=== PATIENT | male | born 1990 | race Two or more races ===

== ENCOUNTER 2023-08-01 14:47 | Outpatient (OUT) | payer OTHER, SELFPAY ==
[2023-08-01 15:35] LABS: Basophils Absolute Auto 0.1 10^3/uL (0.0-0.1); Basophils Percent Auto 0.8 % (0.2-2.0); Eosinophils Absolute Auto 0.1 10^3/uL (0.0-0.7); Eosinophils Percent Auto 1.1 % (0.9-7.0); Hematocrit 37.8 % (42.0-54.0); Hemoglobin 12.6 g/dL (14.0-18.0); Immature Granulocytes Abs Auto 0.08 10^3/uL (0.00-0.03); Immature Granulocytes Pct Auto 0.7 % (0.0-0.5); Lymphocytes Absolute Auto 2.9 10^3/uL (1.2-3.8); Lymphocytes Percent Auto 27.4 % (20.5-60.0); Mean Corpuscular HGB Conc 33.3 g/dL (29.9-35.2); Mean Corpuscular Hemoglobin 30.1 pg (25.9-34.0); Mean Corpuscular Volume 90.4 fL (80.0-94.0); Mean Platelet Volume 10.4 fL (9.5-13.5); Monocytes Absolute Auto 1.4 10^3/uL (0.3-0.8); Monocytes Percent Auto 13.3 % (1.7-12.0); Neutrophils Percent Auto 56.7 % (43.0-75.0); Platelet Count 202 10^3/uL (150-450); Red Blood Count 4.18 10^6/uL (4.70-6.10); Red Cell Distribution Width 13.6 % (11.0-15.0); White Blood Count 10.7 10^3/uL (4.0-11.0)
[2023-08-01 15:36] LABS: Alanine Aminotransferase 37 U/L (16-63); Albumin Level 4.1 g/dL (3.4-5.0); Alkaline Phosphatase 70 U/L (46-116); Anion Gap 14.5; Aspartate Amino Transferase 25 U/L (15-37); BUN Creatinine Ratio 8.9; Bilirubin Total 0.3 mg/dL (0.2-1.0); Calcium 8.8 mg/dL (8.5-10.1); Carbon Dioxide 27.8 mmol/L (21.0-32.0); Chloride 97 mmol/L (98-107); Estimated GFR (African America >60 (>=60); Estimated GFR (Non-African Ame >60 (>=60); Globulin 4.1 g/dL; Glucose 92 mg/dL (74-106); Potassium 3.3 mmol/L (3.5-5.1); Sodium 136 mmol/L (136-145); Total Protein 8.2 g/dL (6.4-8.2)
== END 2023-08-01 14:48 | disposition home or self-care (01) ==
LOC: LAB 14:50
PROVIDERS: PCP Internal Medicine; Visit Provider Internal Medicine
DX: I10 Essential (primary) hypertension (principal)
CPT/HCPCS: 36415; 80053; 85025

== ENCOUNTER 2023-08-26 07:46 | Outpatient (RCR) | payer OTHER, SELFPAY ==
[2023-08-26 14:00] LABS: Basophils Absolute Auto 0.1 10^3/uL (0.0-0.1); Basophils Percent Auto 0.8 % (0.2-2.0); Eosinophils Absolute Auto 0.1 10^3/uL (0.0-0.7); Eosinophils Percent Auto 1.9 % (0.9-7.0); Hematocrit 39.4 % (42.0-54.0); Hemoglobin 12.9 g/dL (14.0-18.0); Immature Granulocytes Abs Auto 0.06 10^3/uL (0.00-0.03); Immature Granulocytes Pct Auto 0.9 % (0.0-0.5); Lymphocytes Absolute Auto 1.8 10^3/uL (1.2-3.8); Lymphocytes Percent Auto 28.2 % (20.5-60.0); Mean Corpuscular HGB Conc 32.7 g/dL (29.9-35.2); Mean Corpuscular Hemoglobin 29.9 pg (25.9-34.0); Mean Corpuscular Volume 91.2 fL (80.0-94.0); Monocytes Absolute Auto 0.7 10^3/uL (0.3-0.8); Monocytes Percent Auto 11.5 % (1.7-12.0); Neutrophils Absolute Auto 3.6 10^3/uL (1.4-6.5); Neutrophils Percent Auto 56.7 % (43.0-75.0); Platelet Count 177 10^3/uL (150-450); Red Blood Count 4.32 10^6/uL (4.70-6.10); Red Cell Distribution Width 13.2 % (11.0-15.0); Reticulocyte Pct Auto 1.72 % (0.60-3.10); White Blood Count 6.4 10^3/uL (4.0-11.0)
[2023-08-26 14:18] LABS: Percent Iron Saturation 29.5 %
[2023-08-26 14:35] LABS: Alanine Aminotransferase 39 U/L (16-63); Albumin Level 4.2 g/dL (3.4-5.0); Alkaline Phosphatase 85 U/L (46-116); Anion Gap 14.6; Aspartate Amino Transferase 40 U/L (15-37); BUN Creatinine Ratio 5.1; Bilirubin Total 0.3 mg/dL (0.2-1.0); Carbon Dioxide 28.2 mmol/L (21.0-32.0); Chloride 98 mmol/L (98-107); Estimated GFR (African America >60 (>=60); Estimated GFR (Non-African Ame >60 (>=60); Globulin 4.3 g/dL; Glucose 118 mg/dL (74-106); Lactate Dehydrogenase 175 U/L (85-227); Potassium 3.8 mmol/L (3.5-5.1); Sodium 137 mmol/L (136-145); Total Protein 8.5 g/dL (6.4-8.2)
[2023-08-28 16:10] LABS: Albumin 4.3 g/dL (2.9-4.4); Alpha-1-Globulin 0.3 g/dL (0.0-0.4); Alpha-2-Globulin 0.9 g/dL (0.4-1.0); Free Kappa Lt Chains,S 26.6 mg/L (3.3-19.4); Free Lambda Lt Chains,S 16.8 mg/L (5.7-26.3); Immunoglobulin A, Qn, Serum 364 mg/dL (90-386); Immunoglobulin G, Qn, Serum 1116 mg/dL (603-1613); Immunoglobulin M, Qn, Serum 107 mg/dL (20-172); Kappa/Lambda Ratio,S 1.58 (0.26-1.65); Protein, Total 7.7 g/dL (6.0-8.5)
[2023-08-31 16:07] LABS: Immunoglobulin E, Total 21 IU/mL (6-495)
== END 2023-09-04 23:59 | disposition home or self-care (01) ==
LOC: INF 07:46
PROVIDERS: PCP Internal Medicine; Visit Provider Internal Medicine Hematology & Oncology
DX: D64.9 Anemia, unspecified (principal)
CPT/HCPCS: 36415; 80053; 82728; 82784; 82785; 83521; 83540; 83550; 83615; 84155; 84165; 85025; 86334; G0463

== ENCOUNTER 2023-09-09 07:37 | Outpatient (RCR) | payer OTHER, SELFPAY ==
[2023-09-09 15:54] LABS: Basophils Absolute Auto 0.1 10^3/uL (0.0-0.1); Basophils Percent Auto 0.8 % (0.2-2.0); Eosinophils Absolute Auto 0.1 10^3/uL (0.0-0.7); Eosinophils Percent Auto 0.9 % (0.9-7.0); Hematocrit 40.2 % (42.0-54.0); Hemoglobin 13.6 g/dL (14.0-18.0); Immature Granulocytes Abs Auto 0.08 10^3/uL (0.00-0.03); Immature Granulocytes Pct Auto 0.9 % (0.0-0.5); Lymphocytes Absolute Auto 2.3 10^3/uL (1.2-3.8); Lymphocytes Percent Auto 26.9 % (20.5-60.0); Mean Corpuscular HGB Conc 33.8 g/dL (29.9-35.2); Mean Corpuscular Hemoglobin 30.2 pg (25.9-34.0); Mean Corpuscular Volume 89.3 fL (80.0-94.0); Mean Platelet Volume 10.1 fL (9.5-13.5); Monocytes Absolute Auto 1.3 10^3/uL (0.3-0.8); Monocytes Percent Auto 15.7 % (1.7-12.0); Neutrophils Absolute Auto 4.6 10^3/uL (1.4-6.5); Neutrophils Percent Auto 54.8 % (43.0-75.0); Platelet Count 210 10^3/uL (150-450); Reticulocyte Pct Auto 1.52 % (0.60-3.10); White Blood Count 8.5 10^3/uL (4.0-11.0)
[2023-09-09 15:59] LABS: Erythrocyte Sedimentation Rate 44 mm/hr (<=15)
[2023-09-09 16:12] LABS: C Reactive Protein <0.50 mg/dL (<=0.50); Thyroid Stimulating Hormone 1.067 uIU/mL (0.358-3.740)
[2023-09-10 16:10] LABS: Hgb A 97.7 % (96.4-98.8); Hgb A2 2.3 % (1.8-3.2)
== END 2023-10-05 23:59 | disposition home or self-care (01) ==
LOC: INF 07:37
PROVIDERS: PCP Internal Medicine; Visit Provider Internal Medicine Hematology & Oncology
DX: D64.9 Anemia, unspecified (principal); I10 Essential (primary) hypertension; F17.210 Nicotine dependence, cigarettes, uncomplicated; F17.290 Nicotine dependence, other tobacco product, uncomplicated; F19.90 Other psychoactive substance use, unspecified, uncomplicated; F10.90 Alcohol use, unspecified, uncomplicated
CPT/HCPCS: 36415; 84443; 85025; 85652; 86140; G0463

== ENCOUNTER 2023-10-14 07:34 | Outpatient (RCR) | payer OTHER, SELFPAY | END 2023-11-04 23:59 | disposition home or self-care (01) | LOC: INF 07:34 | PROVIDERS: PCP Internal Medicine; Visit Provider Internal Medicine Hematology & Oncology | DX: D64.9 Anemia, unspecified (principal) | CPT/HCPCS: G0463 ==